=== PATIENT | female | born 1975 | race Caucasian/White ===

== ENCOUNTER 2019-07-19 17:04 | Emergency (ER) | payer MEDICAID ==
[~2019-07-19] VITALS: Ht 162.6 cm; Wt 69.0 kg
[2019-07-19] MEDS ORDERED: IBUPROFEN 400MG TABLET PO ONE (18:00)
[2019-07-19 20:20] VITALS: BP 127/72
== END 2019-07-19 20:24 | disposition home or self-care (01) ==
LOC: ER 17:04
DX: G57.01 Lesion of sciatic nerve, right lower limb (principal); N64.4 Mastodynia; Z90.49 Acquired absence of other specified parts of digestive tract
CPT/HCPCS: 81025; 99282

== ENCOUNTER 2022-09-20 15:13 | Emergency (ER) | payer MEDICAID, OTHER ==
[~2022-09-20] VITALS: Ht 167.6 cm; Wt 75.1 kg
[2022-09-20] MEDS ORDERED: METOCLOPRAMIDE HCL 10MG TABLET PO ONE (18:15)
[2022-09-20] MEDS ORDERED: ACETAMINOPHEN 325MG TABLET PO ONE (18:15)
[2022-09-20 20:32] LABS: BASOPHILS % 0.1 % (0.0-2.0); EOSINOPHILS % 1.9 % (0.0-5.0); HEMATOCRIT. 39.1 % (36.0-48.0); HEMOGLOBIN. 13.4 g/dL (12.0-16.0); LYMPHOCYTES % 33.7 % (20.0-50.0); MEAN CORPUSCULAR HEMOGLOBIN 31.3 pg (28.0-32.0); MEAN CORPUSCULAR VOLUME 91.2 fL (81.0-99.0); MEAN PLATELET VOLUME 7.7 fl (7.4-10.4); MONOCYTES % 5.3 % (2.0-8.0); PLATELET 274 x1000/uL (130-400); RED BLOOD CELL COUNT 4.29 mill/uL (4.2-5.4); RED CELL DISTRIBUTION WIDTH 13.5 % (11.6-14.6)
[2022-09-20 21:04] LABS: CHLORIDE 105 mEq/L (98-107)
[2022-09-20] MEDS ORDERED: ACYC200C31 MT (21:35)
[2022-09-20] MEDS ORDERED: METO-293 MT (21:35)
[2022-09-20] MEDS ORDERED: ACET-2708 MT (21:35)
[2022-09-20 21:52] VITALS: BP 112/75
== END 2022-09-20 21:53 | disposition home or self-care (01) ==
LOC: ER 15:13
DX: G43.909 Migraine, unspecified, not intractable, without status migrainosus (principal); R20.0 Anesthesia of skin; I10 Essential (primary) hypertension; E78.00 Pure hypercholesterolemia, unspecified
CPT/HCPCS: 36415; 70450; 80053; 81025; 82962; 85025; 99284; J8597